=== PATIENT | male | born 1985 | race Two or more races ===

== ENCOUNTER → 2020-02-15 | Day surgery (SDC) | payer OTHER ==
[2020-02-12 11:34] LABS: BASOPHIL % 0.5 % (0-2); RED CELL DISTRIBUTION WIDTH 12.6 % (11.5-14.5)
[2020-02-12 11:39] LABS: CALCIUM 9.2 mg/dL (8.5-10.1); CARBON DIOXIDE 29.6 mmol/L (21-32); CHLORIDE SERUM 103 mmol/L (98-107); CREATININE SERUM 0.9 mg/dL (0.7-1.3); GFR1 > 60 mL/min; GLUCOSE SERUM 88 mg/dL (74-106); POTASSIUM SERUM 4.2 mmol/L (3.5-5.1); SODIUM SERUM 139 mmol/L (136-145)
[2020-02-12 12:01] LABS: PLATELET COUNT 229 x10^3mcL (130-400)
[2020-02-12 13:52] LABS: ALBUMIN 4.4 g/dL (3.4-5.0); BILIRUBIN DIRECT 0.16 mg/dL (0.0-0.2); BILIRUBIN TOTAL 0.6 mg/dL (0.20-1.00); TOTAL PROTEIN, SERUM 8.1 g/dL (6.4-8.2)
[~2020-02-15] VITALS: Ht 182.9 cm; Wt 77.6 kg
[2020-02-15 10:51] VITALS: BP 117/52
[2020-02-15 17:09] VITALS: BP 129/79
== END | disposition home or self-care (01) ==
LOC: OR 02-12 10:11 → DS 08:48 → OR 11:00
PROVIDERS: ATTEND Surgery
DX: K64.4 Residual hemorrhoidal skin tags (principal); K64.8 Other hemorrhoids; K62.89 Other specified diseases of anus and rectum; Z11.59 Encounter for screening for other viral diseases
CPT/HCPCS: J0696; J2175; J2250; J3010; J3490; U0003-CS

== ENCOUNTER → 2020-10-28 | Outpatient (CLI) | payer OTHER | END | disposition home or self-care (01) | LOC: LB 08:52 | PROVIDERS: ATTEND Family Medicine | DX: R53.83 Other fatigue (principal) ==